=== PATIENT | female | born 1990 | race Caucasian/White ===

== ENCOUNTER 2016-11-28 08:32 | Emergency (ER) | payer BC, OTHER ==
[2016-11-28 08:56] VITALS: PULSE 130; TEMP 99.1; BMI 25.3
[2016-11-28] MEDS ORDERED: DIPHTH,PERTUSS(ACELL),TET 0.5 ML DISP.SYRIN IM ONE (09:32)
[2016-11-28] MEDS ORDERED: IBUPROFEN 600 MG TABLET (FP) PO ONE ×2 (09:32→09:38)
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
[2016-11-28 09:49] VITALS: BP 138/100
== END 2016-11-28 09:47 | disposition home or self-care (01) ==
LOC: JER 08:32 → JERFT 08:32
PROC: 3E0234Z Introduction of Serum, Toxoid and Vaccine into Muscle, Percutaneous Approach (ICD-10-PCS; principal; 2016-11-28)
PROC: 0CQ1XZZ Repair Lower Lip, External Approach (ICD-10-PCS; 2016-11-28)
PROC: 0HQKXZZ Repair Right Lower Leg Skin, External Approach (ICD-10-PCS; 2016-11-28)
DX: S81.011A Laceration without foreign body, right knee, initial encounter (principal); Y04.2XXA Assault by strike against or bumped into by another person, initial encounter; Y93.89 Activity, other specified; Y92.89 Other specified places as the place of occurrence of the external cause; Y07.03 Male partner, perpetrator of maltreatment and neglect
CPT/HCPCS: 90715; 99281-25

== ENCOUNTER 2017-05-10 15:40 | Emergency (ER) | payer BC, OTHER ==
[2017-05-10] MEDS ORDERED: ACETAMINOPHEN INJECTION 100 ML IVPB ONE (16:02)
[2017-05-10] MEDS ORDERED: ACETAMINOPHEN 1000 MG/100 ML VIAL (NON FORMULARY) IVPB ONE (16:03)
[2017-05-10 16:13] VITALS: BMI 25.4
[2017-05-10 16:16] LABS: BASO % 0.4 % (0-2.0); EOS % 0.1 % (0-4.5); HEMATOCRIT 38.4 % (32.4-45.2); HEMOGLOBIN 13.5 GM/dL (10.7-15.3); LYMPH % 15.3 % (8-40); MCHC 35.2 g/dl (32.0-36.0); MEAN CELL VOLUME 87.9 fl (80-96); MEAN PLT VOLUME 7.6 fl (7.5-11.1); MONO % 5.4 % (3.8-10.2); NEUT % 78.8 % (42.8-82.8); PLATELET COUNT 258 K/MM3 (134-434); RBC 4.37 M/mm3 (3.60-5.2); WHITE BLOOD COUNT 6.6 K/mm3 (4.0-10.0)
--- NOTE | 2017-05-10 16:26 | PDOC ---
History of Present Illness <DerianAda Zenaida - Last Filed: 05/10/17 18:09> - History of Present Illness Initial Comments: 05/10/17 16:41 The patient is a 26 year old female with a history of seizures who presents for evaluation following a seizure. The patient is accompanied by her mother who assists in providing the history. They report 2 3min long seizures earlier today while the patient was at work with resulting head trauma. She was noted to have tonic-clonic seizures typical of her previous seizures. She notes her last seizure was 11/2016. She states that she was taking depakote over a year ago for her seizures, but stopped taking it due to concerns for weight gain and has not taken any seizure medications in over a year and does not follow with a neurologist. She is reporting headache due to her seizure today, but otherwise denies fevers, chills, SOB, chest pain, nausea, vomiting, abdominal pain, or changes with urination or bowel movements. <Darío Carreon - Last Filed: 05/10/17 18:26> - General Chief Complaint: Seizure Stated Complaint: SEZIURE Time Seen by Provider: 05/10/17 15:45 Past History <DerianAda Zenaida - Last Filed: 05/10/17 18:09> - Past Medical History Anemia: No Asthma: No Cancer: No Cardiac Disorders: No CVA: No COPD: No CHF: No Dementia: No Diabetes: No GI Disorders: No Disorders: No HTN: No Hypercholesterolemia: No Liver Disease: No Psychiatric Problems: Yes (anxiety) Seizures: Yes Thyroid Disease: No - Surgical History Abdominal Surgery: No Appendectomy: No Cardiac Surgery: No Cholecystectomy: No Lung Surgery: No Neurologic Surgery: No Orthopedic Surgery: Yes (RT ankle x3) - Suicide/Smoking/Psychosocial Hx Smoking Status: No Smoking History: Never smoked Have you smoked in the past 12 months: No Number of Cigarettes Smoked Daily: 0 Hx Alcohol Use: No Drug/Substance Use Hx: No Substance Use Type: None Hx Substance Use Treatment: No <Darío Carreon - Last Filed: 05/10/17 18:26> - Past Medical History Allergies/Adverse Reactions: Allergies Allergy/AdvReac Type Severity Reaction Status Date / Time No Known Allergies Allergy Verified 11/28/16 09:01 Home Medications: Ambulatory Orders Clonazepam [Klonopin] 1 mg PO BID 11/28/16 Alprazolam [Xanax] 1 mg PO DAILY PRN 05/10/17 Bupropion HCl [Wellbutrin Xl] 300 mg PO DAILY 05/10/17 Naproxen [Naprosyn -] 375 mg PO BID #10 tablet 05/10/17 Zolpidem Tartrate [Ambien] 10 mg PO HS 05/10/17 levETIRAcetam [Keppra -] 500 mg PO BID #60 tablet 05/10/17 Review of Systems - Review of Systems Comments:: 05/10/17 16:55 Constitutional: No fevers, chills, fatigue, malaise HEENT: No Rhinorrhea, nasal congestion, visual changes Cardiovascular: No chest pain, syncope, palpitations, lightheadedness Respiratory: No Cough, SOB, Hemoptysis, Gastrointestinal: No Abdominal pain, Nausea, Vomiting, Constipation, Diarrhea, Melena Genitourinary: No Dysuria, Frequency, Urgency, Hesitancy, Hematuria, Flank pain Musculoskeletal: No Myalgia, arthralgia Skin: No rashes, itching, bruising, pallor Neurologic: Headache, Seizure. No Dizziness, Numbness, Weakness, or Tingling Psychiatric: No Hallucinations. No SI or HI <Darío Carreon - Last Filed: 05/10/17 18:26> *Physical Exam - Vital Signs Last Vital Signs Temp Pulse Resp BP Pulse Ox 98 F 107 H 20 128/80 98 05/10/17 15:43 05/10/17 15:43 05/10/17 15:43 05/10/17 15:43 05/10/17 15:43 <Ada Menard - Last Filed: 05/10/17 18:09> - Physical Exam Comments: 05/10/17 16:56 General Appearance: Nourished. No Apparent Distress HEENT: EOMI, CARMEN. No Pharyngeal Erythema, Tonsillar Exudate, Tonsillar Erythema Neck: No Cervical Lymphadenopathy Respiratory/Chest: Lungs Clear, Normal Breath Sounds. No Crackles, Rales, Rhonchi, Wheezing Cardiovascular: Regular Rhythm, Regular Rate. No Murmur, Gallops, Rubs Gastrointestinal/Abdominal: Normal Bowel Sounds, Soft. 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 Normal Finger to Nose and Heel to Bella <Darío Carreon - Last Filed: 05/10/17 18:26> ED Treatment Course - LABORATORY CBC & Chemistry Diagram: 05/10/17 16:06 05/10/17 16:06 - ADDITIONAL ORDERS Additional order review: Laboratory Results 05/10/17 05/10/17 16:24 16:06 Sodium 137 Potassium 4.4 Chloride 104 Carbon Dioxide 22 Anion Gap 11 BUN 4 L Creatinine 0.9 Creat Clearance w eGFR > 60 Random Glucose 104 Calcium 8.5 Total Bilirubin 0.3 D AST 32 ALT 39 Alkaline Phosphatase 45 Total Protein 7.4 Albumin 4.1 Serum , Qual Negative 05/10/17 16:06 RBC 4.37 MCV 87.9 MCHC 35.2 RDW 13.0 MPV 7.6 Neutrophils % 78.8 Lymphocytes % 15.3 D Monocytes % 5.4 Eosinophils % 0.1 Basophils % 0.4 - Medications Given in the ED: ED Medications Discontinued Medications Generic Name Dose Route Start Last Admin Trade Name Freq PRN Reason Stop Dose Admin Acetaminophen 1,000 mg 05/10/17 16:03 05/10/17 16:05 Ofirmev Injection - IVPB 05/10/17 16:04 1,000 mg ONCE ONE Administration <Ada Menard - Last Filed: 05/10/17 18:09> - LABORATORY CBC & Chemistry Diagram: 05/10/17 16:06 05/10/17 16:06 - RADIOLOGY Radiology Studies Ordered: Category Date Time Status CERVICAL SPINE CT W/O CONTR [CT] Stat CT Scan 05/10/17 16:[address] WITHOUT CONTRAST [CT] Stat CT Scan 05/10/17 16:02 Ordered <Darío Carreon - Last Filed: 05/10/17 18:26> Medical Decision Making - Medical Decision Making 05/10/17 16:57 The patient is a 26 year old female with a history of seizures who presents for evaluation following a seizure. Given the patient's history, it is likely her symptoms are due to her normal seizures from medication non-compliance. However we will obtain a cbc, cmp, serum preg, UA, head ct and cervical spine CT to evaluate further. We will treat with iv tylenol here in the ER and continue to monitor and reassess. 05/10/17 18:13 CBC, cmp are unremarkable. Head and cervical spine CT are unremarkable as read by our radiologist. We have loaded the patient with 1 gram of keppra here in the ED. We discussed the case with Dr. Ceja with Neurology who recommended discharging the patient on keppra 500mg BID with follow up in the office. We are comfortable discharging the patient home at this time with neurology follow up. We discussed the results and the plan with the patient who voiced understanding and is agreeable with the plan. <Darío Carreon - Last Filed: 05/10/17 18:26> *DC/Admit/Observation/Transfer <Ada Menard - Last Filed: 05/10/17 18:09> - Discharge Dispostion Admit: No <Darío Carreon - Last Filed: 05/10/17 18:26> Diagnosis at time of Disposition: Seizure - Discharge Dispostion Disposition: HOME Condition at time of disposition: Good - Prescriptions Prescriptions: levETIRAcetam [Keppra -] 500 mg PO BID #60 tablet Naproxen [Naprosyn -] 375 mg PO BID #10 tablet - Referrals Referrals: Shanon Armas MD [Primary Care Provider] - - Patient Instructions Printed Discharge Instructions: DI for Seizure Disorder -- Adult Additional Instructions: Please return to the ER if you experience concerning or worsening symptoms including repeat seizures that do not stop, fevers, difficulty breathing, or worsening headache. Your lab results were normal here in the ER. Your CT scans were normal here in the ER. We have sent a prescription to your pharmacy for Keppra that you should take 500mg Twice a day. Please call the number provided with Dr. Ceja to schedule a follow up appointment within 2-3 days to discuss further management of your symptoms. - Post Discharge Activity Forms/Work/School Notes: Back to Work
[2017-05-10 16:42] LABS: ALBUMIN 4.1 g/dl (3.4-5.0); ANION GAP 11 (8-16); BLOOD UREA NITROGEN 4 mg/dL (7-18); CALCIUM 8.5 mg/dL (8.5-10.1); CHLORIDE 104 mmol/L (98-107); CO2 22 mmol/L (21-32); GLUCOSE,RANDOM 104 mg/dL (74-106); POTASSIUM 4.4 mmol/L (3.5-5.1); SODIUM 137 mmol/L (136-145)
[2017-05-10 16:49] LABS: ALK PHOS 45 U/L (45-117); BILIRUBIN,TOTAL 0.3 mg/dL (0.2-1.0); CREATININE 0.9 mg/dL (0.55-1.02); SGOT/AST 32 U/L (15-37); SGPT/ALT 39 U/L (12-78); TOT PROT 7.4 g/dl (6.4-8.2)
[2017-05-10] MEDS ORDERED: levETIRAcetam 500 MG/5 ML INJECTION VIAL IVPB ONE ×2 (17:25→17:30)
[2017-05-10] MEDS ORDERED: KETOROLAC TROMETHAMINE 30 MG/1 ML VIAL IVPUSH ONE (17:48)
[2017-05-10] MEDS ORDERED: KETOROLAC TROMETHAMINE 30 MG/1 ML VIAL ONE (17:50)
--- NOTE | 2017-05-10 18:11 | PDOC ---
Attending Attestation - HPI HPI: 05/10/17 18:18 The patient is a 26 year old female with past medical history of known seizures who presents to the ED s/p witnessed seizure while at work today. The patient states she subsequently hit the back of her head. She is currently complaining of headache and neck pain. She reports a tonic clonic seizure which is like the ones she has had in the past. Patient does not have a neurologist she sees regularly. Denies any changes in vision or other focal neurological deficits. Denies any fevers or chills. - Physicial Exam PE: 05/10/17 18:20 GENERAL: Well-appearing, well-nourished. No apparent distress. HEENT: No scalp laceration. Normocephalic, atraumatic. PERRL, EOM intact. CARDIOVASCULAR: Normal S1, S2. Regular rate and rhythm. PULMONARY: Clear to auscultation bilaterally. ABDOMEN: Soft, non-distended, non-tender. BACK: Tenderness to neck, and trapezius muscles. EXTREMITIES: Normal ROM in all four extremities. No gross deformities. SKIN: No facial abrasion. Warm, dry. No rash NEUROLOGICAL: No focal neurological deficits. - Medical Decision Making 05/10/17 18:22 Documentation prepared by Angi Nance, acting as medical coding auditor for Ada Menard MD. <Angi Nance - Last Filed: 05/10/17 18:19> - Resident Resident Name: Darío Carreon - ED Attending Attestation I have performed the following: I have examined & evaluated the patient, The case was reviewed & discussed with the resident, I agree w/resident's findings & plan, Exceptions are as noted - Medical Decision Making 05/10/17 18:27 ct scan of head no CT evidence of acute intracranial pathology ct scan of c spine no fracture,no subluxation 05/10/17 19:00 -neurology consulted and pt will be started on keppra and will follow up as an outpt <Ada Menard - Last Filed: 05/10/17 19:01>
[2017-05-10 18:26] VITALS: BP 137/94; PULSE 91; TEMP 97.9
[2017-05-10 19:12] LABS: URINE APPEARANCE CLEAR; URINE BILIRUBIN NEGATIVE (NEGATIVE); URINE COLOR LTYELLOW; URINE GLUCOSE (UA) NEGATIVE (NEGATIVE); URINE KETONE 1+ (NEGATIVE); URINE LEUK ESTERASE NEGATIVE (NEGATIVE); URINE NITRITE NEGATIVE (NEGATIVE); URINE PROTEIN NEGATIVE (NEGATIVE); URINE UROBILINOGEN NEGATIVE mg/dL (0.2-1.0)
--- NOTE | 2017-05-11 10:48 | EKG ---
Test Reason : Blood Pressure : / mmHG Vent. Rate : 102 BPM Atrial Rate : 102 BPM P-R Int : 128 ms QRS Dur : 074 ms QT Int : 332 ms P-R-T Axes : 076 083 042 degrees QTc Int : 432 ms SINUS TACHYCARDIA CANNOT RULE OUT ANTERIOR INFARCT , AGE UNDETERMINED ABNORMAL ECG WHEN COMPARED WITH ECG OF 03-JUL-2015 21:20, NO SIGNIFICANT CHANGE WAS FOUND Confirmed by EKTA NAVARRO, ALEJO ([id number]) on 05/11/2017 10:48:31 AM Referred By: Confirmed By:ALEJO DASH MD
== END 2017-05-10 19:05 | disposition home or self-care (01) ==
LOC: JER 15:40
PROC: 3E033NZ Introduction of Analgesics, Hypnotics, Sedatives into Peripheral Vein, Percutaneous Approach (ICD-10-PCS; principal; 2017-05-10)
PROC: 3E0333Z Introduction of Anti-inflammatory into Peripheral Vein, Percutaneous Approach (ICD-10-PCS; 2017-05-10)
PROC: 3E033GC Introduction of Other Therapeutic Substance into Peripheral Vein, Percutaneous Approach (ICD-10-PCS; 2017-05-10)
DX: G40.909 Epilepsy, unspecified, not intractable, without status epilepticus (principal); R51 Headache; Z91.14 Patient's other noncompliance with medication regimen
CPT/HCPCS: 36415; 70450-TC; 72125-TC; 80053; 81003; 84703; 85025; 93005; 93010; 99284-25; J0131

== ENCOUNTER 2018-04-05 14:02 | Emergency (ER) | payer BC, OTHER ==
[2018-04-05 14:10] VITALS: BP 123/83; PULSE 120; TEMP 99.1; BMI 25.4
--- NOTE | 2018-04-05 15:04 | PDOC ---
Attending Attestation - [facility] HPI: 04/05/18 16:09 The patient is a 27 year old female with a significant past medical seizure disorder and prior Xanax abuse who presents to the emergency department with seizure today. 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 She also reports right knee pain and abrasions to her right hand. She reports her last seizure was about 5 months ago and was 2 in one day. 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 She has otherwise been feeling physically well lately although stressed with finances. - Physicial Exam PE: 04/05/18 16:23 Constitutional: Awake, alert, oriented. No acute distress. Head: Normocephalic. Atraumatic Eyes: (+) ecchymosis around left eye with 2 small abrasions which is ttp. no teardrop pupil. no signs of globe rupture. 4mm and reactive. PERRL. EOMI. Conjunctivae are not pale. ENT: Mucous membranes are moist and intact. Posterior pharynx without exudates or erythema. Uvula midline. Neck: Supple. Full ROM. No lymphadenopathy. Cardiovascular: Regular rate. Regular rhythm. S1, S2 regular. Distal pulses are 2+ and symmetric. Pulmonary/Chest: No evidence of respiratory distress. Clear to auscultation bilaterally No wheezing, rales or rhonchi. Abdominal: Soft and non-distended. There is no tenderness. No rebound, guarding or rigidity. No organomegaly. No palpable masses. Good bowel sounds. Back: No CVA tenderness. Musculoskeletal: (+) right calf ttp, posterior right knee ttp. Right achilles ttp. negative becerra's test.sensation intact. No edema. No cyanosis. No clubbing. Full range of motion in all extremities. Radial/pedal pulses are intact and 2+ bilaterally. No Cspine, Tspine, or Lspine tenderness or stepoffs. Skin: (+) superficial abrasion to right ring finger,superficial abrasion to right lateral knee. Skin is warm and dry. No petechiae. No purpura. Neurological: Alert and oriented to person, place, and time. Cranial nerves II -XII are grossly intact. Normal speech. Strength is grossly symmetric. No sensory deficits. Psychiatric: Good eye contact. Normal interaction, affect and behavior. - Medical Decision Making 04/05/18 16:23 Documentation prepared by Muriel Javed, acting as medical technician for Michell Lopez DO, <Muriel Javed - Last Filed: 04/05/18 16:38> - Resident Resident Name: Pascale Perez - ED Attending Attestation I have performed the following: I have examined & evaluated the patient, The case was reviewed & discussed with the resident, I agree w/resident's findings & plan, Exceptions are as noted - Medical Decision Making 04/05/18 15:04 I, Dr. Michell Lopez DO, attest that this document has been prepared under my direction and personally reviewed by me in its entirety. I further attest, that it accurately reflects all work, treatment, procedures and medical decision -making performed by me. 04/05/18 16:16 a/p: 27yo female with hx of seizures from benzo withdrawal in the past who had a witnessed seizure at work today -currently aaox3 -facial contusions -no neck pain -neuro intact -on klonopin, but has been out of her meds x 3 weeks -will send labs -ct facial bones and head ct -tylenol for pain -will monitor and reassess 04/05/18 17:11 resident discussed the case with Dr. Chavez 04/05/18 20:41 labs reviewed head and facial bones ct negative stable for dc to home <Michell Lopez - Last Filed: 04/05/18 20:41> Heart Score/ECG Review - ECG Intrepretation Comment:: 04/05/18 15:47 sinus at 77, nl axis, nl interval, no acute st/t wave findings <Michell Lopez - Last Filed: 04/05/18 20:41>
[2018-04-05] MEDS ORDERED: SODIUM CHLORIDE 0.9% 500 ML INFUS.BAG IV ONE (15:28)
--- NOTE | 2018-04-05 15:38 | PDOC ---
History of Present Illness - General Chief Complaint: Seizure Stated Complaint: Seizure Time Seen by Provider: 04/05/18 15:01 History Source: Patient Exam Limitations: No Limitations - History of Present Illness Initial Comments: 04/05/18 15:29 27YOF with h/o seizure disorder and prior Xanax abuse who p/w seizure. 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 She also notes right knee pain and abrasions to her right hand. She otherwise states this is the same as her prior seizures. Her last seizure was about 5 months ago and was 2 in one day. She notes having been on Klonopin chronically and had been getting monthly prescriptions, which were recently switched to 2-week prescriptions to taper her down. She states she left her bottle of Klonopin at her mother's house and then started fighting with her, so has not had any in 3 weeks. She states that her prescription was called into her pharmacy today and should be ready for her to picker tender helper. She has otherwise been feeling physically well lately although stressed with finances. Past History - Past Medical History Allergies/Adverse Reactions: Allergies Allergy/AdvReac Type Severity Reaction Status Date / Time No Known Allergies Allergy Verified 04/05/18 14:08 Home Medications: Ambulatory Orders Clonazepam [Klonopin] 1 mg PO BID 11/28/16 Anemia: No Asthma: No Cancer: No Cardiac Disorders: No CVA: No COPD: No CHF: No Dementia: No Diabetes: No GI Disorders: No Disorders: No HTN: No Hypercholesterolemia: No Liver Disease: No Psychiatric Problems: Yes (anxiety) Seizures: Yes Thyroid Disease: No - Surgical History Abdominal Surgery: No Appendectomy: No Cardiac Surgery: No Cholecystectomy: No Lung Surgery: No Neurologic Surgery: No Orthopedic Surgery: Yes (RT ankle x3) - Suicide/Smoking/Psychosocial Hx Smoking Status: No Smoking History: Never smoked Have you smoked in the past 12 months: No Number of Cigarettes Smoked Daily: 0 Information on smoking cessation initiated: No Hx Alcohol Use: No Drug/Substance Use Hx: No Substance Use Type: None Hx Substance Use Treatment: No Review of Systems - Review of Systems Able to Perform ROS?: Yes Comments:: 04/05/18 15:50 GEN: no fever, chills, malaise, generalized weakness, or weight change HEENT: no ear pain, sore throat, vision change, or eye pain CV: no chest pain, palpitations, lightheadedness, syncope, or edema RESP: no cough, wheezing, or SOB GI: no abdominal pain, nausea, vomiting, diarrhea, constipation, or white/black/ bloody stool : no dysuria, hematuria, incontinence, retention, bleeding, or discharge MSK: no neck/back pain, muscle weakness/pain, or joint swelling/pain NEURO: no headache, seizure, vertigo, numbness, tingling, or focal weakness PSYCH: no substance use, no behavior change SKIN: no jaundice, no rash ROS otherwise negative except as noted in HPI *Physical Exam - Vital Signs Last Vital Signs Temp Pulse Resp BP Pulse Ox 99.1 F 120 H 20 123/83 99 04/05/18 14:08 04/05/18 14:08 04/05/18 14:08 04/05/18 14:08 04/05/18 14:08 - Physical Exam Comments: 04/05/18 15:51 GENERAL: facial trauma as noted on HEENT exam but otherwise well-appearing, A/ Ox4, no distress, answers questions appropriately, accompanied by SO at bedside HEENT: Left developing periorbital ecchymosis without raccoon eyes, no other e/ o facial trauma, PERRLA, EOMI without pain, moist mucous membranes, visual acuity 20/20 bilaterally with lenses NECK/BACK: no midline ttp, no spinal stepoff or deformity, no hematoma, full ROM , neck supple CARDIOVASCULAR: regular rate/rhythm, normal S1S2, no MGR, strong peripheral pulses, capillary refill <2 seconds, extremities wwp, no edema LUNGS/RESPIRATORY: no respiratory distress, CTAB GI/ABDOMEN: symmetric [id number], normoactive BS, soft, no ttp, no midline pulsatile masses : no CVA tenderness EXTREMITIES: no muscle atrophy, no acute deformity, no edema SKIN: tiny superficial abrasions right knuckles without bony deformity or ttp, right knee tiny abrasion, otherwise skin is warm and dry, no pallor, no jaundice , no rash, no bruising, no skin breakdown NEUROLOGICAL: GCS 15, CN II-XII grossly intact, 5/5 strength proximally and distally, no facial droop, normal gait Moderate Sedation - Procedure Monitoring Vital Signs: Procedure Monitoring Vital Signs Temperature 99.1 F 04/05/18 14:08 Pulse Rate 120 H 04/05/18 14:08 Respiratory Rate 20 04/05/18 14:08 Blood Pressure 123/83 04/05/18 14:08 O2 Sat by Pulse Oximetry (%) 99 04/05/18 14:08 Heart Score/ECG Review #1 04/05/18 15:46 NSR, rate 77, normal axis and intervals, no ST-T changes ED Treatment Course - RADIOLOGY Radiology Studies Ordered: Category Date Time Status HEAD CT WITHOUT CONTRAST [CT] Stat CT Scan 04/05/18 15:[address] W/O CONTRAST [CT] Stat CT Scan 04/05/18 15:26 Ordered Medical Decision Making - Medical Decision Making 04/05/18 15:39 Adult Pt p/w apparent seizure, with periorbital ecchymosis. Initial Vital Signs Temp Pulse Resp BP Pulse Ox 99.1 F 120 H 20 123/83 99 04/05/18 14:08 04/05/18 14:08 04/05/18 14:08 04/05/18 14:08 04/05/18 14:08 Exam: As noted in Physical Exam section. DDX IBNLT: seizure (myoclonic, tonic-clonic/grand mal, atonic, absence/petit mal ) vs. syncope, status epilepticus (sz lasting 5-10 minutes, or repeated sz without regaining consciousness inbetween), VS abnormalities (e.g. fever), structural (e.g. epilepsy, CVA/TIA), infectious (e.g. UTI, PNA, meningitis), trauma, toxic-metabolic (e.g. medications, medication withdrawal, street drugs, street drug withdrawal, EtOH, EtOH withdrawal, electrolytes, thyroid), brain lesion (e.g. tumor), stroke, TTP (HUS with AMS, fever, poss seizure), idiopathic , psychiatric (e.g. pseudoseizure), eclampsia, etc. W/U ordered: CBCD CMP Mg Phos Tylenol/Salicylates/EtOH levels UDS UA UCx hGC EKG CXR Head CT TX ordered: IVF EKG: Reviewed; results as noted in ECG Review section. Head CT: Orbits CT: 04/05/18 16:[address] Chavez who recall seeing her from 2016. Recommends 1 mg clonazepam and I hve ordered this. Patient still unable to urinate but IVF are running. Laboratory Tests 04/05/18 04/05/18 04/05/18 17:16 17:16 18:56 Urine Color Straw Urine Appearance Clear Urine pH 7.0 Ur Specific [place] 1.010 Urine Protein Negative Urine Glucose (UA) Negative Urine Ketones Trace H Urine Blood 1+ H Urine Nitrite Negative Urine Bilirubin Negative Urine Urobilinogen Negative Ur Leukocyte Esterase Negative Urine WBC (Auto) <1 Urine RBC (Auto) None Ur Epithelial Cells Rare Urine HCG, Qual Negative Opiates Screen Negative Methadone Screen Negative Barbiturate Screen Negative Phencyclidine Screen Negative Ur Amphetamines Screen Negative MDMA (Ecstasy) Screen Negative Benzodiazepines Screen Negative Cocaine Screen Negative U Marijuana (THC) Screen Negative Reassessment: Exam benign. CT 04/05/18 20:42 This patient has gotten significant relief of symptoms while in the ED. On last reassessment, vitals are wnl, pain is reasonably controlled, and exam is benign. Workup is not concerning for emergency-level pathology at this time. This patient is appropriate for discharge with close outpatient follow up. She has Rx ready to picker tender helper at her pharmacy for Klonopin from her outpatient provider. They are comfortable with this plan and will follow up with their primary care provider in 1-3 days. Specific return precautions are discussed and they will come back to the ER if necessary. *DC/Admit/Observation/Transfer Diagnosis at time of Disposition: Seizure Periorbital ecchymosis Qualifiers: Encounter type: initial encounter Laterality: left Qualified Code(s): S00.12XA - Contusion of left eyelid and periocular area, initial encounter - Discharge Dispostion Disposition: HOME Condition at time of disposition: Stable Decision to Admit order: No - Referrals Referrals: Shanon Armas MD [Primary Care Provider] - Arnie Chavez MD [Staff Physician] - - Patient Instructions Additional Instructions: You were seen in the ER for a seizure. We did an exam, a urine test, an electrocardiogram, and imaging studies, and we did not find any new concerning abnormalities. After our assessment, we do not believe you are having a medical emergency at this time, and we believe you are safe to go home. Take your Klonopin exactly as prescribed because if you do not, you are at higher risk for having seizures which can put you in danger of serious accidents and other complications. Withdrawaling abruptly from Klonopin can cause life-threatening complications, as can using too much of it. Also, avoid triggers that may cause or worsen your seizures such as alcohol, drugs, dehydration, fasting, lack of sleep, or intensely stressful situations. Please follow up with your regular primary care provider, and also with your neurologist, Dr. Chavez. We are giving you his clinic information in this packet. Call their clinic, tell them you were seen in the ER, and tell them you need a follow-up. If you have any new or worsening symptoms, please come back to the ER at any time (24 hours a day). If you are having severe or life threatening symptoms, or symptoms that make it unsafe to drive or have someone drive you, please call 911. - Post Discharge Activity Forms/Work/School Notes: Back to Work
[2018-04-05] MEDS ORDERED: ACETAMINOPHEN 1000 MG/100 ML VIAL (NON FORMULARY) IVPB ONE (15:42)
[2018-04-05] MEDS ORDERED: ACETAMINOPHEN INJECTION 100 ML IVPB ONE (15:47)
[2018-04-05] MEDS ORDERED: DIPHTH,PERTUSS(ACELL),TET 0.5 ML DISP.SYRIN IM ONE ×2 (16:09→17:06)
[2018-04-05] MEDS ORDERED: clonazePAM 0.5 MG TABLET PO ONE (16:52)
[2018-04-05] MEDS ORDERED: clonazePAM 0.5 MG TABLET ONE (17:06)
[2018-04-05 17:51] LABS: URINE APPEARANCE CLEAR; URINE BILIRUBIN NEGATIVE (<2.0 mg/dL); URINE COLOR STRAW; URINE GLUCOSE (UA) NEGATIVE (NEGATIVE); URINE KETONE TRACE (NEGATIVE); URINE LEUK ESTERASE NEGATIVE (NEGATIVE); URINE NITRITE NEGATIVE (NEGATIVE); URINE PROTEIN NEGATIVE (NEGATIVE); URINE UROBILINOGEN NEGATIVE mg/dL (0.2-1.0)
[2018-04-05 17:54] LABS: EPI CELLS RARE /HPF (FEW)
[2018-04-05 19:38] LABS: COCAINE, UR NEGATIVE ng/ml (CUTOFF=300); METHADONE, UR NEGATIVE ng/ml (CUTOFF=300); OPIATES, URI NEGATIVE ng/ml (CUTOFF=300); PHENCYCLIDINE,URINE NEGATIVE ng/ml (CUTOFF=25); URINE AMPHETAMINES NEGATIVE ng/ml (CUTOFF=500); URINE BARBITURATES NEGATIVE ng/ml (CUTOFF=200); URINE BENZODIAZEPINES NEGATIVE ng/ml (CUTOFF=200)
--- NOTE | 2018-04-06 16:44 | EKG ---
Test Reason : Blood Pressure : / mmHG Vent. Rate : 077 BPM Atrial Rate : 077 BPM P-R Int : 124 ms QRS Dur : 078 ms QT Int : 366 ms P-R-T Axes : 075 082 056 degrees QTc Int : 414 ms NORMAL SINUS RHYTHM NORMAL ECG WHEN COMPARED WITH ECG OF 10-MAY-2017 16:16, NO SIGNIFICANT CHANGE WAS FOUND Confirmed by TYLOR TEJEDA MD ([id number]) on 04/06/2018 4:44:30 PM Referred By: Confirmed By:TYLOR TEJEDA MD
== END 2018-04-05 20:55 | disposition home or self-care (01) ==
LOC: JER 14:02
PROC: 3E0234Z Introduction of Serum, Toxoid and Vaccine into Muscle, Percutaneous Approach (ICD-10-PCS; principal; 2018-04-05)
PROC: 3E033NZ Introduction of Analgesics, Hypnotics, Sedatives into Peripheral Vein, Percutaneous Approach (ICD-10-PCS; 2018-04-05)
DX: G40.909 Epilepsy, unspecified, not intractable, without status epilepticus (principal); S00.12XA Contusion of left eyelid and periocular area, initial encounter; S60.511A Abrasion of right hand, initial encounter; M25.561 Pain in right knee; W18.39XA Other fall on same level, initial encounter; Y93.89 Activity, other specified; Y92.218 Other school as the place of occurrence of the external cause; Y99.8 Other external cause status
CPT/HCPCS: 70450-TC; 70480-TC; 80307; 81003; 81015; 84703; 90471; 90715; 93005; 93010; 96374; 99282-25; J0131